=== PATIENT | female | born 1970 | race Two or more races ===

== ENCOUNTER 2024-11-25 07:43 | Outpatient (REF) | payer OTHER, SELFPAY ==
--- OUTSIDE RECORDS SUMMARY | 2024-11-25 07:47 | XMS_ITS | Clinical Summary ---
Author Organization [facility] Address [address] [place] [address] Care Team Providers Care Honing Machine Operator Tool Name Role Phone Anastacia Gonzalez RISK COMPLIANCE MANAGER Primary Care Provider [phone] Source Comments PLEASE NOTE, if this patient is a minor, it may be UNLAWFUL to discuss sensitive information that is contained in these records (such as FAMILY PLANNING, MENTAL HEALTH or SUBSTANCE ABUSE) with the minor patient's parent or other person without the patient's specific authorization.VERONICAIN Allergies Active Allergy Reactions Criticality Noted Date Comments Oxycodone Intolerance - Will N ot Trigger Allergy Alert Medium 02/07/2018 Medications arm brace (WRIST BRACE)Indicatio ns:Bilateral hand pain,Wrist tendonitis Bilateral wrist splints, right and left. M79.641, M79.642. Lifetime need. 2 Each 02/08/20 18 Active Additional Information Patient not taking.Reported on 10/09/2024 leg brace (ANKLE BRACE)Indicatio ns:Chronic pain of left ankle Ankle support brace, left. M77.8 Lifetime need. 1 Each 02/08/20 18 Active Additional Information Patient not taking.Reported on 10/09/2024 cyclobenzaprine (FLEXERIL) 10 mg tablet Take 1 Tablet by mouth 3 (three) times daily as needed for muscle spasms 30 Tablet 2 11/19/19 Active Additional Information Patient not taking.Reported on 10/09/2024 polyethylene glycol 3350 17 gram/dose powderIndicatio ns:Slow transit constipation Take 17 g by mouth once daily For constipation 510 g 2 02/07/20 Active Additional Information Patient not taking.Reported on 10/09/2024 calcium carbonate 600 mg calcium (1,500 mg) tabletIndicatio ns:Osteopenia, unspecified location Take 1 Tablet by mouth 2 (two) times daily 180 Tablet 3 02/07/20 22 Active Additional Information Patient not taking.Reported on 10/09/2024 methocarbamoL (ROBAXIN) 500 mg tabletIndicatio ns:DDD (degenerative disc disease), lumbar Take 1 Tablet by mouth 3 (three) times daily 30 Tablet 04/06/20 23 Active Additional Information Patient not taking.Reported on 10/09/2024 busPIRone (BUSPAR) 7.5 mg tabletIndicatio ns:Anxiety,Grie ving Take 1 Tablet by mouth 2 (two) times daily Please Discontinue 15 mg dosage 30 Tablet 04/30/20 23 Active Additional Information Patient not taking.Reported on 10/09/2024 gabapentin (NEURONTIN) 300 mg capsuleIndicati ons:Chronic left-sided low back pain with left-sided sciatica Take 1 Capsule by mouth 3 (three) times daily For pain 90 Capsule 2 08/17/19 24 Active Additional Information Patient not taking.Reported on 10/09/2024 lidocaine (LIDODERM) 5 % patchIndication s:Chronic left-sided low back pain with left-sided sciatica Place 1 Patch onto the skin once daily (every 24 hours) For low back pain 30 Patch 2 08/17/19 24 Active Additional Information Patient not taking.Reported on 10/09/2024 sucralfate (CARAFATE) 1 gram tabletIndicatio ns:LLQ pain Take 1 Tablet by mouth 4 (four) times daily 30 Tablet 09/15/19 24 Active Additional Information Patient not taking.Reported on 10/09/2024 traMADoL (ULTRAM) 50 mg tabletIndicatio ns:LLQ pain Take 1 Tablet by mouth 4 (four) times daily as needed for pain 15 Tablet 09/15/19 24 Active Additional Information Patient not taking.Reported on 10/09/2024 MUCUS DM 30-600 mg per 12 hr tabletIndicatio ns:Upper respiratory tract infection, unspecified type TAKE 1 TABLET BY MOUTH TWICE A DAY 30 Tablet 10/30/19 24 Active Additional Information Patient not taking.Reported on 10/09/2024 metFORMIN (GLUCOPHAGE) 500 mg tabletIndicatio ns:Prediabetes Take 1 Tablet by mouth 2 (two) times daily with a meal For prediabetes 180 Tablet 1 12/03/19 24 Active Additional Information Patient not taking.Reported on 10/09/2024 melatonin 5 mg tabIndications: Insomnia, unspecified type TAKE 1 TABLET BY MOUTH EVERYDAY AT BEDTIME 90 Tablet 1 04/08/20 24 Active meloxicam (MOBIC) 15 mg tabletIndicatio ns:Chronic pain of left heel Take 1 Tablet by mouth once daily For pain 30 Tablet 1 04/25/20 Active Additional Information Patient not taking.Reported on 10/09/2024 acetaminophen (TYLENOL 8 HOUR) 650 mg CR tabletIndicatio ns:Left foot pain Take 1 Tablet by mouth every 8 (eight) hours as needed for pain 60 Tablet 1 06/14/20 Active Additional Information Patient not taking.Reported on 10/09/2024 omeprazole (PRILOSEC) [address] capsuleIndicati ons:Gastroesoph ageal reflux disease without esophagitis Take 1 Capsule by mouth every morning before breakfast 90 Capsule 2 06/14/20 Active SUMAtriptan (IMITREX) 20 mg/actuation nasal sprayIndication s:Cluster headache, not intractable, unspecified chronicity pattern Place 1 [place] into the nostril(s) 1 (one) time as needed for migraine for up to 1 dose Can repeat dose after 2 hours. Max 2 doses in 24 hour period. 6 Each 09/12/19 Active Additional Information Patient not taking.Reported on 10/09/2024 fluticasone (FLONASE) 50 mcg/actuation nasal spray Place 1 [place] in both nostrils once daily 16 g 5 10/10/19 25 Active VITAMIN D3 25 mcg (1,000 unit) tablet TAKE 1 TABLET BY MOUTH EVERY DAY 90 Tablet 3 10/31/19 25 Active cholecalciferol (VITAMIN D-3) 25 mcg (1,000 unit) tablet Take 1 Tablet by mouth once daily 90 Tablet 3 11/20/19 24 2024 Discontinued Active Problems Problem Noted Date Diagnosed Date Carpal tunnel syndrome of right wrist 11/06/2023 Overview (11/06/2023): 10/23/2023: Amairani; EMG of upper extremities bilateral: result; mild median neuropathy at carte tunnel, on right hand. Class 1 obesity due to exces s calories without serious comorbidity with body mass index (BMI) of 31.0 to 31.9 in adult 09/15/2023 Osteopenia 02/15/2022 Overview (02/15/2022): 12/05/2021: Bone density: Osteopenia. OAB (overactive bladder) 02/15/2022 Slow transit constipation 02/15/2022 DDD (degenerative disc disease), lumbar 10/14/19 Overview (10/13/2021): 08/17/2021: Xray of lumbar: Mild DDD similar to Xray on 2020. Hx of right breast biopsy: 04/01/2021: Amairani: be nign 06/30/2021 Overview (08/31/2023): [facility]: 04/01/2021: Rt breast biopsy: Biopsy results have returned and are benign. Benign breast tissue with focal apocrine metaplasia evident. These findings are concordant with imaging. Recommend follow-up with mammography when due for annual screening. BI-RADS Category 2, benign 08/25/2023 - Mammogram - BI-RADS 1 - Negative. Recommendation: Routine screening mammogram Bilateral in 1 year Diverticulosis 02/13/2021 Overview (02/13/2021): 11/04/2020: CT of abd: amairani: IMPRESSION: No bowel obstruction, free air, free fluid or focal inflammatory changes. Colonic diverticulosis without evidence of acute diverticulitis. Fatty infiltration of liver. Fatty liver 02/13/2021 Overview (02/13/2021): 11/04/2020: CT of abd: denisay: IMPRESSION: No bowel obstruction, free air, free fluid or focal inflammatory changes. Colonic diverticulosis without evidence of acute diverticulitis. Fatty infiltration of liver. Hx of bacterial pneumonia 06/13/2020 Prediabetes 03/17/2019 Overview (03/17/2019): 02/27/19 - A1C = 5.9% Arthralgia of multiple joints 02/25/2018 Overview (03/17/2019): 02/19/18 - Xrays of b/l hands, wrists, L knee and L ankle NEGATIVE 02/26/19 - Seen by RHEUM: labs CBC, ESR, CRP, Cr, AST/ALT, RF, CCP; R knee and b/l hand xrays. F/U 2 weeks. 03/13/19 - Rheum F/U: Localized primary OA of knee, arthralgia of hand, no synovitis. Workup unrevealing for early inflammatory arthritis. Will continue to monitor. Tx: Tylenol 650 1-2 tabs Q8 hrs. F/U 3 mos. Iron deficiency anemia due to chronic blood loss 02/06/2017 Mixed hyperlipidemia 02/05/2017 Varicose veins of both lower extremities with pa in 01/09/2017 Gastroesophageal reflux disease without esophagi tis 01/08/2017 Overview (11/10/2018): 11/07/18 - CR UGI w/ Air: no masses, strictures or ulcers identified in upper GI tract. Hx of hysterectomy Overview (11/18/2021): ull hysterectomy with left oophorectomy Hx of cholecystectomy Resolved Problems Problem Noted Date Diagnosed Date Resolved Date Hx of tonsillectomy 01/09/2017 04/25/20 Hx of cholecystectomy 01/09/20172017 Fibroids 01/08/2017 02/13/2021 Hx of hysterectomy 01/08/2017 8 Overview (01/09/2017): Due to fibroids in 11/2016. Menorrhagia 12/10/2016 02/13/2021 Overview (12/10/2016): Joana Arnold, plan: Total abdo hysterectomy, ? BSO Encounters Date Type Department Care Team Description 10/09/2024 4:20 PM EDT Office Visit [address] [phone] Anjali Quiroz, VIC Bilateral carpal tunnel syndrome (Primary Dx); Seasonal allergic rhinitis, unspecified trigger 09/11/2024 3:20 PM EDT Office Visit [address] [phone] Wendy Pedraza PA Lopez, Iris Cluster headache, not intractable, unspecified chronicity pattern (Primary Dx) from Last 3 Months Immunizations Immunization Administration Dates Next Due Flu, Preservative Free 04/30/2023 Hep B,adult,adjuvanted (HEPLISAV) 04/29/2024,09/2023 INFLUENZA, SEASONAL, INJECTABLE 03/24/2013 JO-ANN COVID-19 VACCINE 09/20/2020 PFIZER COVID VACCINE, PURPLE CAP, 12+ 07/08/2021 TDAP 07/25/2019 ZOSTER VACCINE, RECOMBINANT (SHINGRIX) 0,07/25/2019 Family History Medical History Relation Name Comments Diabetes Brother Stroke Brother Heart Problems Father Diabetes Mother Stroke Mother Hypertension Sister Relation Name Status Comments Brother Alive Father Mother Alive Sister Alive Social History Tobacco Use Types Packs/Day Years Used Date Smoking Tobacco: Never Smokeless Tobacco: Never Tobacco Cessation:Counseling Given: Not Answered Alcohol Use Standard Drinks/Week Comments No 0 (1 standard drink = 0.6 oz pur e alcohol) Social Connections Answer Date Recorded Connectedness 0 03/07/2024 Financial Resource Strain Answer Date R ecorded Financial Resource Strain 0 2018 Stress Answer Date Recorded Stress 0 02/09/2019 Physical Activity Answer Date Recorded Physical Activity 0 02/09/2019 Food Insecurity Answer Date Recorded Food 0 03/13/2024 Transportation Needs Answer Date Record ed Transportation 0 02/09/2019 Housing Stability Answer Date Recorded Housing 0 02/09/2019 Safety and Environment Answer Date Navid rded Safety 0 02/09/2019 Utilities Answer Date Recorded Utilities 0 02/09/2019 Employment Answer Date Recorded Stress 0 03/07/2024 Comments No Sex and Gender Information Value Date Recorded Sex Assigned at Female 05/03/2017 5:00 PM PST Legal Sex Female 10:30 AM PST Gender Identity Female 05/03/2017 5:00 PM PST Sexual Orientation Straight 05/03/2017 5: 00 PM PST Last Filed Vital Signs Vital Sign Reading Time Taken Comments Blood Pressure 138/80 10/09/2024 4:09 PM EDT Pulse 93 10/09/2024 4:09 PM EDT Temperature 36.7 ??C (98 ??F) 10/09/2024 4:09 PM EDT Respiratory Rate 16 10/09/2024 4:09 PM EDT Oxygen Saturation 99% 10/09/2024 4:09 PM EDT Inhaled Oxygen Concentration - - Weight 80.3 kg (177 lb) 10/09/2024 4:09 PM EDT Height 162.6 cm (5' 4 ) 10/09/2024 4:09 PM EDT Body Mass Index 30.38 10/09/2024 4:09 PM EDT Plan of Treatment Upcoming Encounters Date Type Department Care Team (Late st Contact Info) Description 12/03/2024 9:20 AM EDT Office Visit [address] [phone] Anjali Quiroz, RISK COMPLIANCE MANAGER [address] [place] [address] Health Maintenance Due Date Last Done Comments Anxiety Screening 1968 CT Colonography 2013 FIT/gFOBT 2013 Fecal DNA 2013 Flexible Sigmoidoscopy 2013 Cervical Cancer Screening 10/14/2021 Pap + HPV 10/14/2021 10/14/2018 Pap Smear 10/14/2021 10/14/2018 HPV Screening 10/15/2023 10/14/2018 [id number] ( season) 2024 022, 09/20/2020 Annual Wellness (Adult): Indicated (All Coverage) 04/30/2024 04/30/2023, 02/03/2021, 06/25/2019, Additional history exists Alcohol and Drug Screen 06/18/2024 11/20/19 24, 08/17/2023, 04/30/2023, Additional history exists Depression Annual Screen 06/18/2024 04/25/2024 Diabetes Screening 11/26/2024 11/27/2023, 0 11/26/2023, 11/26/2023, Additional history exists Breast Cancer Screening (Mammogram) 06/30/2025 06/30/2024, 06/30/2024, 08/25/2023, Additional history exists Hypertension Screening (#1) 10/09/2025 Tobacco Screening 10/09/2025 10/09/2024 Lipid Screening 11/25/2026 11/26/2023, 03/0 09/2023, 08/20/2023, Additional history exists Colonoscopy 02/14/2028 02/13/2023, 03/07/2018 Colorectal Cancer Screening 02/14/2028 Imm-DTaP/Tdap/Td (2 - Td or Tdap) 07/25/2029 020 HIV Screening Completed 06/25/2019 Imm-Zoster, Recombinant Completed 09/26/2019, 07/25 Hepatitis C Screening Completed 03/16/2020 Bone Density Screening Completed 12/05/2021, 2021 Imm-Influenza Discontinued 04/30/2023, 03/24/2013 Imm-Hepatitis B Completed 04/29/2024, 11/20/2023 Cervical Ablation/Cold-Knife Conization Discontinued Cervical Cryotherapy Discontinued Colposcopy Discontinued Endometrial Biopsy Discontinued Excision/Leep Discontinued HPV Genotyping Discontinued Vaginal Pap Discontinued Vulvoscopy Discontinued Procedures Procedure Name Priority Date/Time Associated Diagnosis Comments HARDENING MACHINE OPERATOR REPORT 3:00 AM EDT REFERRAL TO ORTHOPEDICS Routine 10/28/19 25 3:00 AM EDT Bilateral carpal tunnel syndrome IMAGING SCANNED DOCUMENT 10/23/2024 3:00 AM EDT REFERRAL SCANNED DOCUMENT 10/22/2024 3:00 AM EDT REFERRAL TO PODIATRY Urgent 10/01/2024 3:00 AM EDT Chronic pain of left heel XR FOOT LEFT Routine 10/01/2024 3:00 AM EDT Left foot pain HISTORIC MAMMOGRAM 06/30/2024 3: 00 AM EST HGBA1C W/MPG Routine 11/26/2023 8:48 AM EDT Prediabetes LIPID PANEL Routine 11/26/2023 8:48 AM EDT Prediabetes HISTORIC COLONOSCOPY 02/13/2023 3:00 AM EDT HISTORIC DEXA SCAN 12/05/2021 3: 00 AM EDT HEPATITIS C DIAGNOSTIC (LLMM) Routine 03/16/2020 9:30 AM EDT Chronic fatigue ANTIBODY HIV-1&HIV-2 SINGLE RESULT Routine 06/25/2019 3:16 PM EST Routine general medical examination at a health care facility PAP SMEAR W/HPV, ABSTRACTED Routine 10/14/2018 11:14 AM EDT from Last 3 Months or Most Recently Relevant to Health Maintenance Results * HARDENING MACHINE OPERATOR REPORT (10/30/2024 3:00 AM EDT) 10/30/2024 3:00 AM EDT Anastacia Gonzalez RISK COMPLIANCE MANAGER SCAN PROCEDURES Final Result * REFERRAL TO ORTHOPEDICS (10/27/2024 3:00 AM EDT) 10/27/2024 3:00 AM EDT Anjali Quiroz RISK COMPLIANCE MANAGER REFERRAL Elsi l Result * IMAGING SCANNED DOCUMENT (10/23/2024 3:00 AM EDT) 10/23/2024 3:00 AM EDT Katty Bills RISK COMPLIANCE MANAGER SCAN IMAGING Final Result * REFERRAL SCANNED DOCUMENT (10/22/2024 3:00 AM EDT) 10/22/2024 3:00 AM EDT Katty Bills RISK COMPLIANCE MANAGER SCAN REFERRAL Final Result * XR FOOT LEFT [[id number]] (Rayus) (10/01/2024 3:00 AM EDT) 10/01/2024 3:00 AM EDT [facility] - 06/17/2024 11:07 AM EST IMPRESSION: No acute findings. ?? Huey Pacheco MD Signed by Huey Pacheco MD Read by: Dr. HUEY PACHECO M.D. Reviewed and Electronically Signed by: Dr. HUEY PACHECO M.D. [facility]IC [facility] - 06/17/2024 11:07 AM EST Original Report PROCEDURE: ??XR LEFT FOOT 3 or more views INDICATION: ??Left foot pain and swelling. TECHNIQUE: ??Three views of the left foot. COMPARISON: ??None. FINDINGS: ?? There is no displaced fracture. ??The alignment is anatomic. No soft tissue abnormality is seen. Procedure Note Default, [facility] Provider - 06/17/2024 Original Report PROCEDURE: XR LEFT FOOT 3 or more views INDICATION: Left foot pain and swelling. TECHNIQUE: Three views of the left foot. COMPARISON: None. FINDINGS: There is no displaced fracture. The alignment is anatomic. No soft tissue abnormality is seen. IMPRESSION: IMPRESSION: No acute findings. Huey Pacheco MD Signed by Huey Pacheco MD Read by: Dr. HUEY PACHECO M.D. Reviewed and Electronically Signed by: Dr. HUEY PACHECO M.D. Vineet Tineo [facility] IM[facility] XRAY Edited Result - Final [facility] DI[facility]NOSTIC IMAGING Corporate Office [address], [address] [place] [address], [place] [phone] * REFERRAL TO PODIATRY (10/01/2024 3:00 AM EDT) 10/01/2024 3:00 AM EDT us Anastacia Singhchanelle [facility] REFERRAL Edited Result - Final * HISTORIC MAMMOGRAM (06/30/2024 3:00 AM EST) 06/30/2024 3:00 AM EST Anastacia Singhserinasheri [facility] IMG MAMMO Final Result * (ABNORMAL) HGBA1C W/MPG (11/26/2023 8:48 AM EDT) HEMOGLOBIN A1C 6.2(H) <5.7 % of total Hgb [employer] Comment: For someone without known diabetes, a hemoglobin A1c value between 5.7% and 6.4% is consistent with prediabetes and should be confirmed with a follow-up test. For someone with known diabetes, a value <7% indicates that their diabetes is well controlled. A1c targets should be individualized based on duration of diabetes, age, comorbid conditions, and other considerations. This assay result is consistent with an increased risk of diabetes. Currently, no consensus exists regarding use of hemoglobin A1c for diagnosis of diabetes for children. MEAN PLASMA GLUCOSE 143 mg/dL (calc) [employer] Blood Blood / Unknown 11/26/2023 8 :48 AM EDT 11/26/2023 8:49 AM EDT Narrative [facility] - 11/27/2023 6:40 AM EDT FASTING:YES Anastacia Singhchanelle [facility] LAB - BLOOD DRAW Edited Result - Final [facility] [address] [place] [id number], [employer] [address] [place] [phone] * (ABNORMAL) LIPID PANEL (11/26/2023 8:48 AM EDT) CHOLESTEROL, TOTAL 208(H) <200 mg/dL [employer] HDL CHOLESTEROL 49(L) > OR = 50 mg/dL [employer] TRIGLYCERIDES 177(H) <150 mg/dL [employer] LDL-CHOLESTEROL 130(H) 99 mg/dL (calc) [employer] Comment: Reference range: <100 Desirable range <100 mg/dL for primary prevention; ?? <70 mg/dL for patients with CHD or diabetic patients with > or = 2 CHD risk factors. LDL-C is now calculated using the Terrell calculation, which is a validated novel method providing better accuracy than the Friedewald equation in the estimation of LDL-C. Zachary LAWRENCE et al. JADON. 2013;310(33): 4836-4452 (http://education.Novogy/faq/PCW253) CHOL/HDLC RATIO 4.2 <5.0 (calc) [employer] NON-HDL CHOLESTEROL 159(H) <130 mg/dL (calc) [employer] Comment: For patients with diabetes plus 1 major ASCVD risk factor, treating to a non-HDL-C goal of <100 mg/dL (LDL-C of <70 mg/dL) is considered a therapeutic option. Blood Blood / Unknown 11/26/2023 8 :48 AM EDT 11/26/2023 8:49 AM EDT Narrative [facility] - 11/27/2023 6:40 AM EDT FASTING:YES Anastacia HO LAB - BLOOD DRAW Final Result Performing Organization Address City/State/[facility] Co de Phone Number [facility] [address] [place] [id number], [employer] [address] [place] [phone] * HISTORIC COLONOSCOPY (02/13/2023 3:00 AM EDT) 02/13/2023 3:00 AM EDT Anastacia HO PROCEDURES Edited Result - Final * HISTORIC DEXA SCAN (12/05/2021 3:00 AM EDT) 12/05/2021 3:00 AM EDT Anastacia HO IMG DXA Edited Result - Final * HEPATITIS C DIAGNOSTIC (LLMM) (03/16/2020 9:30 AM EDT) Pathologist [facility] HEPATITIS C VIRUS DIAGNOSTIC NEGATIVE NEGATIVE [facility] 03/16/2020 9:30 AM EDT 03/16/2020 1:41 PM EDT [facility] - 03/16/2020 3:22 PM EDT [employer], [place] [address] Sandblasting Supervisor - Caro Mcdaniel MD PT ID [id number] ORD# [id number] [facility] - BLOOD DRAW Final Result Performing Organization Address City/[facility]/[place] [address], * HIV-1 & HIV-2 ANTIBODIES (06/25/2019 3:16 PM EST) [facility] HIV 1 AND 2 ANTIBODY SCREEN NONREACTIVE NONREACTIVE [facility] Comment: HIV testing performed at reference lab due to reagent backorder. Test performed at: [place] [address] Daryl Chamorro MD- Sandblasting Supervisor Blood specimen (specimen) Blood / Unknown 06/25/2019 3:16 PM EST 06/25/2019 3:20 PM EST [facility] - 06/30/2019 10:56 AM EST [employer], a member of [address] [address] Sandblasting Supervisor - Caro Mcdaniel MD PT ID [id number] ORD# [id number] [facility] - BLOOD DRAW Final Result Performing Organization Address City/[facility]/ZIP Co de Phone Number [address] [address], * PAP SMEAR W/HPV, ABSTRACTED (10/14/2018 11:14 AM EDT) PAP SMEAR INTERPRETATION NORMAL NORMAL [facility] HPV (HUMAN PAPILLOMA) NEGATIVE NEGATIVE [facility] HPV TYPE 16 NEGATIVE NEGATIVE [facility] HPV TYPE 18 NEGATIVE NEGATIVE [facility] Specimen from uterine cervix (specimen) Impressions [facility] - 10/14/2018 11:14 AM EDT ThinPrep Pap Negative for squamous intraepithelial lesion and malignancy Billie is present HPV Negative us Provider [facility] - PATHOLOGY AND CYTOLOGY AMB ULATORY Final Result [facility] [address] [place] [address], from Last 3 Months or Most Recently Relevant to Health Maintenance Insurance [employer] Member Subscriber Plan / Payer (Ef fective 2020-Present) Name:Clarissa Stallworth Relation to Subscriber:Self Name:Clarissa Stallworth Payer ID:[id number] Type:Indemnity Address: [facility] [address] [place] [address] Care Teams Honing Machine Operator Tool Relationship Specialty Start Date End Date Anastacia Gonzalez FNP [address] [place] [address] PCP - General Internal Medicine 06/25/19
--- NOTE | 2024-11-25 07:54 | EMG_ITS ---
FINDINGS: Bilateral median and ulnar motor and sensory studies were performed. Bilateral radial sensory studies and median and lateral antecubital brachial sensory studies were performed, and paraspinal muscles were tested with a needle. IMPRESSION: Mild right median neuropathy across carpal tunnel. Otherwise, no significant abnormality noted. MD SHANON Perez/FRAN / [id number]
== END 2024-11-25 07:44 | disposition home or self-care (01) ==
LOC: HO.NEURO 07:43
DX: R20.0 Anesthesia of skin (principal); R20.2 Paresthesia of skin
CPT/HCPCS: 95886; 95913

== ENCOUNTER 2024-12-02 13:54 | Outpatient (AMB) | payer OTHER, SELFPAY ==
--- NOTE | 2024-12-02 14:15 | A.OFFVIS_ITS ---
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 Patient reports she has daily pain, numbness and tingling. She says she wakes up in the morning with her hands cramped so she has to massage her hands to get her fingers to straighten out. She says after her EMG the next day she had an exacerbation in her pain. Expresses dropping items from her hand like plates, pots and pans. Her gripping, grasping and squeezing has become difficult for her due to her symptoms. She says she would like to try therapy before surgery. EMG/NCS done on 11/25/24 IMPRESSION: Mild right median neuropathy across carpal tunnel. Otherwise, no significant abnormality noted. 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 Patient reports she has daily pain, numbness and tingling. She says she wakes up in the morning with her hands cramped so she has to massage her hands to get her fingers to s traighten out. She says after her EMG the next day she had an exacerbation in her pain. Patient states that the numbness and tingling is present in both hands, and that 1 is not particularly worse than the other. Expresses dropping items from her hand like plates, pots and pans. Her gripping, grasping and squeezing has become difficult for her due to her symptoms. She says she would like to try therapy before surgery. EMG/NCS done on 11/25/24 IMPRESSION: Mild right median neuropathy across carpal tunnel. Otherwise, no significant abnormality noted. [facility] Social History (Updated 12/02/24 @ 14:20 by EMIL Noble) Alcohol intake: current Alcohol intake frequency: holidays/special occasions only Patient Tobacco Use Status: Never used Tobacco Current occupational status: employed Current occupation: right hand dominant Review of Systems Const All systems reviewed & are unremarkable except as noted in HPI and below Physical Exam Vital Signs: BMI result Body Mass Index 30.6 Extrem Other: Neuro: Decreased sensation of the tips of all digits of bilateral hands in the office today No thenar or intrinsic wasting. Good APB muscle firing and good finger cross. Vascular: Capillary refill brisk. ROM: Patient can make a fist and extend all their digits. Skin: No lacerations or abrasions noted. General: No ecchymosis. No erythema or evidence of infection. Assessment & Plan Assessment & Plan (1) Right carpal tunnel syndrome: Code(s): G56.01 - Carpal tunnel syndrome, right upper limb Category: Medical Plan 1. Right carpal tunnel syndrome Symptoms constant, daily, worse at night Patient is educated about this condition Patient is educated about the treatment options available At this time, patient states that she is being treated for a calcaneus fracture at a different practice, and would like to have treatment completed for this prior to any additional surgical intervention Patient is educated she should call our office for another appointment when she feels she is in a adequate spot to have surgery performed Patient understands this in his amenable to this plan Follow-up when she feels she is ready to discuss right carpal tunnel release, sooner with any acute concerns Coding Level of Care Code New Pt Level 3 (65805) Diagnoses Right carpal tunnel syndrome G56.01
[2024-12-02 14:17] VITALS: BMI 30.6
--- OUTSIDE RECORDS SUMMARY | 2024-12-02 15:58 | XMS_ITS | Clinical Summary ---
Author Organization [facility] Address [address] [place] [address] Care Team Providers Care Wire Twister Name Role Phone Anastacia Gonzalez SENIOR JAVASCRIPT ENGINEER Primary Care Provider [phone] Source Comments PLEASE NOTE, if this patient is a minor, it may be UNLAWFUL to discuss sensitive information that is contained in these records (such as FAMILY PLANNING, MENTAL HEALTH or SUBSTANCE ABUSE) with the minor patient's parent or other person without the patient's specific authorization.[facility] Allergies Active Allergy Reactions Criticality Noted Date Comments Oxycodone Intolerance - Will N ot Trigger Allergy Alert Medium 02/07/2018 Medications arm brace (WRIST BRACE)Indication s:Bilateral hand pain,Wrist tendonitis Bilateral wrist splints, right and left. M79.641, M79.642. Lifetime need. 2 Each 8 Active Additional Information Patient not taking.Reported on 10/09/2024 leg brace (ANKLE BRACE)Indication s:Chronic pain of left ankle Ankle support brace, left. M77.8 Lifetime need. 1 Each 8 Active Additional Information Patient not taking.Reported on 10/09/2024 cyclobenzaprine (FLEXERIL) 10 mg tablet Take 1 Tablet by mouth 3 (three) times daily as needed for muscle spasms 30 Tablet 2 2 Active Additional Information Patient not taking.Reported on 10/09/2024 polyethylene glycol 3350 17 gram/dose powderIndication s:Slow transit constipation Take 17 g by mouth once daily For constipation 510 g 2 2 Active Additional Information Patient not taking.Reported on 10/09/2024 calcium carbonate 600 mg calcium (1,500 mg) tabletIndication s:Osteopenia, unspecified location Take 1 Tablet by mouth 2 (two) times daily 180 Tablet 3 2 Active Additional Information Patient not taking.Reported on 10/09/2024 methocarbamoL (ROBAXIN) 500 mg tabletIndication s:DDD (degenerative disc disease), lumbar Take 1 Tablet by mouth 3 (three) times daily 30 Tablet 3 Active Additional Information Patient not taking.Reported on 10/09/2024 busPIRone (BUSPAR) 7.5 mg tabletIndication s:Anxiety,Grievi ng Take 1 Tablet by mouth 2 (two) times daily Please Discontinue 15 mg dosage 30 Tablet 3 Active Additional Information Patient not taking.Reported on 10/09/2024 gabapentin (NEURONTIN) 300 mg capsuleIndicatio ns:Chronic left-sided low back pain with left-sided sciatica Take 1 Capsule by mouth 3 (three) times daily For pain 90 Capsule 2 4 Active Additional Information Patient not taking.Reported on 10/09/2024 lidocaine (LIDODERM) 5 % patchIndications :Chronic left-sided low back pain with left-sided sciatica Place 1 Patch onto the skin once daily (every 24 hours) For low back pain 30 Patch 2 4 Active Additional Information Patient not taking.Reported on 10/09/2024 sucralfate (CARAFATE) 1 gram tabletIndication s:LLQ pain Take 1 Tablet by mouth 4 (four) times daily 30 Tablet 4 Active Additional Information Patient not taking.Reported on 10/09/2024 traMADoL (ULTRAM) 50 mg tabletIndication s:LLQ pain Take 1 Tablet by mouth 4 (four) times daily as needed for pain 15 Tablet 4 Active Additional Information Patient not taking.Reported on 10/09/2024 MUCUS DM 30-600 mg per 12 hr tabletIndication s:Upper respiratory tract infection, unspecified type TAKE 1 TABLET BY MOUTH TWICE A DAY 30 Tablet 4 Active Additional Information Patient not taking.Reported on 10/09/2024 metFORMIN (GLUCOPHAGE) 500 mg tabletIndication s:Prediabetes Take 1 Tablet by mouth 2 (two) times daily with a meal For prediabetes 180 Tablet 1 4 Active Additional Information Patient not taking.Reported on 10/09/2024 melatonin 5 mg tabIndications:I nsomnia, unspecified type TAKE 1 TABLET BY MOUTH EVERYDAY AT BEDTIME 90 Tablet 1 4 Active meloxicam (MOBIC) 15 mg tabletIndication s:Chronic pain of left heel Take 1 Tablet by mouth once daily For pain 30 Tablet 1 4 Active Additional Information Patient not taking.Reported on 10/09/2024 acetaminophen (TYLENOL 8 HOUR) 650 mg CR tabletIndication s:Left foot pain Take 1 Tablet by mouth every 8 (eight) hours as needed for pain 60 Tablet 1 4 Active Additional Information Patient not taking.Reported on 10/09/2024 omeprazole (PRILOSEC) [address] capsuleIndicatio ns:Gastroesophag eal reflux disease without esophagitis Take 1 Capsule by mouth every morning before breakfast 90 Capsule 2 4 Active SUMAtriptan (IMITREX) 20 mg/actuation nasal sprayIndications :Cluster headache, not intractable, unspecified chronicity pattern Place 1 [place] into the nostril(s) 1 (one) time as needed for migraine for up to 1 dose Can repeat dose after 2 hours. Max 2 doses in 24 hour period. 6 Each 5 Active Additional Information Patient not taking.Reported on 10/09/2024 fluticasone (FLONASE) 50 mcg/actuation nasal spray Place 1 [place] in both nostrils once daily 16 g 5 5 Active VITAMIN D3 25 mcg (1,000 unit) tablet TAKE 1 TABLET BY MOUTH EVERY DAY 90 Tablet 3 5 Active Active Problems Problem Noted Date Diagnosed Date Carpal tunnel syndrome of right wrist 11/06/2023 Overview (11/06/2023): 10/23/2023: Hannah; EMG of upper extremities bilateral: result; mild [...] 2020. Hx of right breast biopsy: 04/01/2021: [facility]: be nign 06/30/2021 Overview (08/31/2023): [facility]: 04/01/2021: [...] Resolved Date Hx of tonsillectomy 01/09/2017 04/25/20 18 Hx of cholecystectomy 01/09/20172017 Fibroids 01/08/2017 02/13/2021 Hx of hysterectomy 01/08/2017 8 Overview (01/09/2017): Due to fibroids in 11/2016. Menorrhagia 12/10/2016 02/13/2021 Overview (12/10/2016): Joana Arnold, plan: Total abdo hysterectomy, ? BSO Encounters Date Type Department Care Team Description 10/09/2024 4:20 PM EDT Office Visit [address] [id number] Anjali Quiroz FNP Bilateral carpal tunnel syndrome (Primary Dx); Seasonal allergic rhinitis, unspecified trigger 09/11/2024 3:20 PM EDT Office Visit [address] [phone] Wendy Pedraza PA Lopez, Iris Cluster headache, [...] Description 12/03/2024 9:20 AM EDT Office Visit [facility] [address] [place] [phone] Anjali Quiroz, [place] [address] [place] [address] Health Maintenance Due Date Last Done Comments Anxiety Screening 1968 CT Colonography 2013 FIT/gFOBT 2013 Fecal DNA 2013 Flexible Sigmoidoscopy 2013 Cervical Cancer Screening 10/14/2021 Pap + HPV 10/14/2021 10/14/2018 Pap Smear 10/14/2021 10/14/2018 HPV Screening 10/15/2023 10/14/2018 [id number] ( season) 2024 022, 09/20/2020 Annual Wellness (Adult): Indicated (All Coverage) 04/30/2024 04/30/2023, 02/03/2021, 06/25/2019, Additional history exists Alcohol and Drug Screen 06/18/2024 11/20/19, 08/17/2023, 04/30/2023, Additional history exists Depression Annual Screen 06/18/2024 04/25/2024 Diabetes Screening 11/26/2024 11/27/2023, 0 11/26/2023, 11/26/2023, Additional history exists Breast Cancer Screening (Mammogram) 06/30/2025 06/30/2024, 06/30/2024, 08/25/2023, Additional history exists Hypertension Screening (#1) 10/09/2025 Tobacco Screening 10/09/2025 10/09/2024 Lipid Screening 11/25/2026 11/26/2023, 0309/2023, 08/20/2023, Additional history exists Colonoscopy 02/14/2028 02/13/2023, [...] Procedure Name Priority Date/Time Associated Diagnosis Comments AUDITING CONTROL CLERK REPORT 3:00 AM EDT REFERRAL TO ORTHOPEDICS Routine 10/28/19 25 3:00 AM EDT Bilateral carpal tunnel syndrome IMAGING SCANNED DOCUMENT 10/23/2024 3:00 AM EDT REFERRAL SCANNED DOCUMENT 10/22/2024 3:00 AM EDT REFERRAL TO PODIATRY Urgent 10/01/2024 3:00 AM EDT Chronic pain of left heel XR FOOT LEFT Routine 10/01/2024 3:00 AM EDT Left foot pain HISTORIC MAMMOGRAM 06/30/2024 3 :00 AM EST HGBA1C W/MPG Routine 11/26/2023 8:48 [...] Recently Relevant to Health Maintenance Results * AUDITING CONTROL CLERK REPORT (10/30/2024 3:00 AM EDT) 10/30/2024 3:00 AM EDT Anastacia Gonzalez SENIOR JAVASCRIPT ENGINEER SCAN PROCEDURES Final Result * REFERRAL TO ORTHOPEDICS (10/27/2024 3:00 AM EDT) 10/27/2024 3:00 AM EDT Anjali Quiroz SENIOR JAVASCRIPT ENGINEER REFERRAL Elsi l Result * IMAGING SCANNED DOCUMENT (10/23/2024 3:00 AM EDT) 10/23/2024 3:00 AM EDT Katty Campositaka SENIOR JAVASCRIPT ENGINEER SCAN IMAGING Final Result * REFERRAL SCANNED DOCUMENT (10/22/2024 3:00 AM EDT) 10/22/2024 3:00 AM EDT Nice Nabitaka SENIOR JAVASCRIPT ENGINEER SCAN REFERRAL Final Result * XR FOOT LEFT [[id number]] (Rayus) (10/01/2024 3:00 AM EDT) 10/01/2024 3:00 AM EDT Impressions [facility] - 06/17/2024 11:07 AM EST IMPRESSION: No acute findings. ?? Huey Pacheco MD Signed by Huey Pacheco MD Read by: Dr. HUEY PACHECO M.D. Reviewed and Electronically Signed by: Dr. HUEY PACHECO M.D. Narrative [facility] - 06/17/2024 11:07 AM EST Original Report PROCEDURE: ??XR LEFT FOOT 3 or more views INDICATION: ??Left foot pain and swelling. TECHNIQUE: ??Three views of the left foot. COMPARISON: ??None. FINDINGS: ?? There is no displaced fracture. ??The alignment is anatomic. No soft tissue abnormality is seen. Procedure Note Default, [facility] Provider - 06/17/2024 Original Report PROCEDURE: XR [...] by: Dr. HUEY PACHECO M.D. Vineet Tineo MANAGER UTILITY IMG XRAY Edited Result - Final [facility] Corporate Office [address] [place], [address] [place] [address], [place] [phone] * REFERRAL TO PODIATRY (10/01/2024 3:00 AM EDT) 10/01/2024 3:00 AM EDT Anastacia Gonzalez SENIOR JAVASCRIPT ENGINEER REFERRAL Edited Result - Final * HISTORIC MAMMOGRAM (06/30/2024 3:00 AM EST) 06/30/2024 3:00 AM EST Anastacia ISABELP IMG MAMMO Final Result * (ABNORMAL) HGBA1C W/MPG (11/26/2023 8:48 AM EDT) HEMOGLOBIN A1C 6.2(H) <5.7 % of total Hgb [facility] Comment: For someone without known diabetes, a [...] children. MEAN PLASMA GLUCOSE 143 mg/dL (calc) [facility] Blood Blood / Unknown 11/26/2023 8 :48 AM EDT 11/26/2023 8:49 AM EDT Narrative [facility] - 11/27/2023 6:40 AM EDT FASTING:YES Anastacia Lisa [facility] - BLOOD DRAW Edited Result - Final [facility] [address] [place] [id number], [facility] [address] [place] [phone] * (ABNORMAL) LIPID PANEL (11/26/2023 8:48 AM EDT) CHOLESTEROL, TOTAL 208(H) <200 mg/dL [facility] HDL CHOLESTEROL 49(L) > OR = 50 mg/dL [facility] TRIGLYCERIDES 177(H) <150 mg/dL [facility] LDL-CHOLESTEROL 130(H) 99 mg/dL (calc) [facility] Comment: Reference range: <100 Desirable range <100 mg/dL for primary prevention; ?? <70 mg/dL for patients with CHD or diabetic patients with > or = 2 CHD risk factors. LDL-C is now calculated using the Zachary-Tidwell calculation, which is a validated novel method providing better accuracy than the Friedewald equation in the estimation of LDL-C. Zachary SS et al. JADON. 2013;310(19): 1895-3911 (http://education.Network Vision/faq/UQO769) CHOL/HDLC RATIO 4.2 <5.0 (calc) [facility] NON-HDL CHOLESTEROL 159(H) <130 mg/dL (calc) [facility] Comment: For patients with diabetes plus 1 major ASCVD risk factor, treating to a non-HDL-C goal of <100 mg/dL (LDL-C of <70 mg/dL) is considered a therapeutic option. Blood Blood / Unknown 11/26/2023 8 :48 AM EDT 11/26/2023 8:49 AM EDT Narrative [facility] - 11/27/2023 6:40 AM EDT FASTING:YES Anastacia ISABELP LAB - BLOOD DRAW Final Result [facility] [address] [place] [id number], [facility] [address] [place] [phone] * HISTORIC COLONOSCOPY (02/13/2023 3:00 AM EDT) 02/13/2023 3:00 AM EDT Anastacia ISABELP PROCEDURES Edited Result - Final * HISTORIC DEXA SCAN (12/05/2021 3:00 AM EDT) 12/05/2021 3:00 AM EDT Anastacia HO IMG DXA Edited Result - Final * HEPATITIS C DIAGNOSTIC (LLMM) (03/16/2020 9:30 AM EDT) Pathologist [facility] HEPATITIS C VIRUS DIAGNOSTIC NEGATIVE NEGATIVE [facility] 03/16/2020 9:30 AM EDT 03/16/2020 1:41 PM EDT Narrative [facility] - 03/16/2020 3:22 PM EDT [employer], a member of [address] [address] Footwear Sales Coordinator - Caro Mcdaniel MD PT ID [id number] ORD# [id number] Anastacia Singhchanelle SENIOR JAVASCRIPT ENGINEER LAB - BLOOD DRAW Final Result [address] [address], * HIV-1 & HIV-2 ANTIBODIES (06/25/2019 3:16 PM EST) Pathologist [facility] HIV 1 AND 2 ANTIBODY SCREEN NONREACTIVE NONREACTIVE [facility] Comment: HIV testing performed at reference lab due to reagent backorder. Test performed at: [place] [address] Daryl Chamorro MD- Footwear Sales Coordinator Blood specimen (specimen) Blood / Unknown 06/25/2019 3:16 PM EST 06/25/2019 3:20 PM EST Narrative [facility] - 06/30/2019 10:56 AM EST [employer], a member of [address] [address] Footwear Sales Coordinator - Caro Mcdaniel MD PT ID [id number] ORD# [id number] Anastaciaosvaldo Gonzalez SENIOR JAVASCRIPT ENGINEER LAB - BLOOD DRAW Final Result [address] [address], * PAP SMEAR W/HPV, ABSTRACTED (10/14/2018 11:14 AM EDT) Pathologist [facility] PAP SMEAR INTERPRETATION NORMAL NORMAL [facility] HPV (HUMAN PAPILLOMA) NEGATIVE NEGATIVE [facility] HPV TYPE 16 NEGATIVE NEGATIVE [facility] HPV TYPE 18 NEGATIVE NEGATIVE [facility] Specimen from uterine cervix (specimen) Impressions [facility] - 10/14/2018 11:14 AM EDT ThinPrep Pap Negative for squamous intraepithelial lesion and malignancy Billie is present HPV Negative us Provider [facility] - PATHOLOGY AND CYTOLOGY AMB ULATORY Final Result [facility] [address] [place] [address], from Last 3 Months or Most Recently Relevant to Health Maintenance Insurance [id number] Member Subscriber Plan / Payer (Ef fective 2020-Present) Name:Clarissa Stallworth Relation to Subscriber:Self Name:Clarissa Stallowrth Payer ID:[id number] Type:Indemnity Address: [facility] [address] [place] [address] Care Teams Wire Twister Relationship Specialty Start Date End Date Anastacia Gonzalez FNP [address] [place] [address] PCP - General Internal Medicine 06/25/19
== END 2024-12-02 15:31 | disposition home or self-care (01) ==
LOC: HO.HOS 13:55
DX: G56.01 Carpal tunnel syndrome, right upper limb (principal)
CPT/HCPCS: 99203

== ENCOUNTER → 2024-12-02 13:54 | Outpatient (BNVA) | payer OTHER, SELFPAY | DX: G56.01 Carpal tunnel syndrome, right upper limb (principal); R20.2 Paresthesia of skin | CPT/HCPCS: 99202 ==

== ENCOUNTER 2025-05-12 13:18 | Outpatient (AMB) | payer OTHER, SELFPAY ==
--- NOTE | 2025-05-12 13:21 | A.OFFVIS_ITS ---
Vital Signs 3 05/12/25 13:25 Height 5 ft Weight 178 lb BMI 34.8 BP 124/74 Blood Pressure Location Lt brachial Position Sitting Pulse 90 Pulse Source Pulse Oximeter Pulse Oximetry (%) 100 Oxygen Delivery Method Room Air Intake Visit Reasons: LUMBAR RADICULOPATHY Intake Note: Pain today 02/25 Out Of School Hours Care Worker Required: No Accompanied by: Spouse Allergies peanut Allergy (Intermediate, Verified 05/12/25 13:25) Anaphylaxis acetaminophen (From Percocet) Adverse Reaction (Unknown, Verified 05/12/25 13:25) blood pressure drops oxycodone (From Percocet) Adverse Reaction (Unknown, Verified 05/12/25 13:25) blood pressure drops HPI Comments Details: The patient is a 54 year old individual presenting for evaluation of low back pain with left sided lumbar radiculopathy. The patient reports diffuse pain involving the back and left foot, which is exacerbated at night and daily activities, leading to significant sleep disturbance, with the patient sleeping only about two hours per night. Her left foot pain is localized to left plantar aspect of the heel. The patient is currently undergoing physical therapy at [facility] for the back and has completed five visits with two remaining. In addition to back pain, the patient has an orthopedic diagnosis of left posterior and plantar fascial fibromatosis, plantar fasciitis, and equinus contracture of the ankle. This condition is being managed by an Orthopedist, and surgical intervention may be required. The patient also reports paresthesia in the left toes. She is wearing Cam boot and utilizes left knee scooter for transfers and mobility. Past medical history is notable for prediabetes and carpal tunnel syndrome, which is managed by a hand specialist. 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 Pain is exacerbated by prolonged standing, walking, heavy lifting and sitting. A lumbar spine MRI performed in February revealed mild degenerative changes. At L4-L5, there is a small annular tear with a disc bulge and bilateral facet arthritis, without significant stenosis. At L5-S1, a bulging disc impinges the right descending and exiting nerve roots, and there is moderate right neuroforaminal narrowing. - Location: The patient reports pain in the low back, which radiates to the left leg, and also has pain in the left foot. - Quality: Associated with pins and needles and numbness in the toes, aching, sharp and stabbing pain in the lower back. - Timing: Pain is worse at night and during the day with activities and movements. - Exacerbating Factors: Pain is worsened by standing up, leaning backward, forward flexion, walking, standing, and prolonged sitting. - Associated Symptoms: The pain significantly interferes with sleep, limiting it to approximately two hours per night. - Affect: Pain significantly impacts sleep, with the patient reporting only sleeping about 2 hours per night. - Analgesia: The patient is currently undergoing physical therapy for back pain. - Activities of Daily Living: The patient cannot stand or sit for long periods and is currently out of work due to pain. - Aberrant Drug Related Behaviors: None discussed. [facility] Medical History (Updated 05/12/25 @ 14:37 by VIC Gilliam) Chronic low back pain Left foot pain Plantar fascial fibromatosis of left foot Hyperlipidemia Arthralgia of multiple joints Fatty liver Diverticulosis Gastritis Iron deficiency anemia Prediabetes Rectal polyp Constipation Spider varicose vein Foot pain Surgical History H/O: hysterectomy Social History Alcohol intake: current Alcohol intake frequency: holidays/special occasions only Patient Tobacco Use Status: Never used Tobacco Current occupational status: employed Current occupation: right hand dominant Review of Systems Const Details: - Constitutional: Reports poor sleep quality, sleeping only about 2 hours nightly. - Musculoskeletal: Reports low back pain radiating to the left leg and pain in the left foot. - Neurological: Reports paresthesia (pins and needles) and numbness in the toes; denies bladder or bowel dysfunction or saddle anesthesia. All systems reviewed & are unremarkable except as noted in HPI and below Physical Exam Vital Signs: Last Vital Signs Pulse 90 05/12/25 13:25 BP 124/74 05/12/25 13:25 Pulse Ox 100 05/12/25 13:25 Oxygen Delivery Method Room Air 05/12/25 13:25 BMI result Body Mass Index 34.8 General: Appears afebrile. Alert and oriented. Mood and affect appropriate. Follows and participates in conversation appropriately. Respiratory effort is unlabored. No cough. Able to transition from sit to stand unassisted. Ambulates with right normal heel strike and toe off. Left lower leg and foot in CAM boot, uses left knee scooter. General: Yes no CVA tenderness Back/Spine/Pelvis Other: Limited lumbar ROM due to pain. Demonstrates 5/5 strength of quadriceps bilaterally as well as flexion/dorsiflexion of bilateral feet against resistance. 2+ pedal pulses bilaterally. Straight leg rise with dorsiflexion negative bilaterally. +2 patellar and +1 right, not tested left, achilles reflexes bilaterally. Facet loading test positive bilaterally. Dave?s, Pelvic compression and Stinchfield tests are positive bilaterally, left>right. Mild right groin pain with I/E hip rotations. Valsalva maneuver negative. Back: no CVA tenderness Cervical Spine: cervical ROM normal, cervical muscular tenderness, No Cervical spine scars present and No Cervical spine tenderness Thoracic/Lumbar Spine: thoracic and lumbar spine normal to inspection, No Thoracic/lumbar spine scar(s), Lasegue's sign negative, straight leg raise negative bilaterally, pain with thoraco-lumbar ROM, paraspinal muscle tenderness, thoraco-lumbar ROM limited, No thoracic spinal tenderness and lumbar spinal tenderness (L4-S1) Sacroiliac joints: bilaterally (+Dave's on the left) tender to palpation Extrem General: Yes capillary refill normal, Yes no clubbing, cyanosis or edema and Yes no calf tenderness Left lower extremity: foot Details: tenderness Location: of the plantar foot Results Reviewed Results Reviewed: Assessment & Plan Assessment & Plan (1) Lumbar radiculopathy: Code(s): M54.16 - Radiculopathy, lumbar region Category: Medical (2) Lumbar degenerative disc disease: Code(s): M51.369 - Other intervertebral disc degeneration, lumbar region without mention of lumbar back pain or lower extremity pain Category: Medical (3) Chronic low back pain: Code(s): M54.50 - Low back pain, unspecified; G89.29 - Other chronic pain Category: Medical (4) Plantar fascial fibromatosis of left foot: Code(s): M72.2 - Plantar fascial fibromatosis Category: Medical (5) Left foot pain: Code(s): M79.672 - Pain in left foot Category: Medical (6) Sacroiliac joint pain: Code(s): M53.3 - Sacrococcygeal disorders, not elsewhere classified Category: Medical (7) Lumbosacral spondylosis: Code(s): M47.817 - Spondylosis without myelopathy or radiculopathy, lumbosacral region Category: Medical Plan The patient's left-sided symptoms do not correlate with the MRI findings, which show right-sided nerve impingement at L4-L5 and no significant left neuroforaminal or central canal spine narrowing. The low back pain is attributed to lumbar arthritis and sacroiliac joint pain, while the left foot pain is considered to be from the orthopedic diagnoses of plantar fasciitis and fibromatosis, not radiculopathy. For the low back pain, the plan is to proceed with diagnostic bilateral L3, L4, and L5 medial branch blocks (MBBs) with local and fluoroscopy. If these injections provide at least six hours of significant pain relief, the patient will be a candidate for a subsequent radiofrequency ablation (RFA) procedure or therapeutic injections. Expectations, risks and benefits were reviewed. Patient is aware she will be contacted to schedule this procedure. Peripheral nerve stimulation was discussed as a potential treatment for left foot or back pain, but it is not covered by the patient's current insurance ([email or web address]). This option can be revisited in June when the patient anticipates having new insurance coverage. The patient was advised to continue with the investment specialist for management of the left foot conditions, including potential surgery, and to follow up here after the injections. All questions and concerns have been answered and patient agreed with the treatment plan. Follow up after injections and sooner as needed. Patient was informed and verbally consented to the use of an ambient scribe for clinic note documentation during this visit. Coding Level of Care Code New Pt Level 4 (77838) Diagnoses Lumbar radiculopathy M54.16 Lumbar degenerative disc disease M51.369 Chronic low back pain M54.50; G89.29 Plantar fascial fibromatosis of left foot M72.2 Left foot pain M79.672 Sacroiliac joint pain M53.3 Lumbosacral spondylosis M47.817
[2025-05-12 13:25] VITALS: BP 124/74; PULSE 90; O2SAT 100; BMI 34.8
--- OUTSIDE RECORDS SUMMARY | 2025-05-12 17:08 | XMS_ITS | Encounter Summary ---
Author Organization [facility] Address [address] [place] [address] Care Team Providers Care Principal Cyber Engineer Name Role Phone Katty Bills VIC Primary Care Provider [phone] Encounter Details Date Type Department Care Team (Latest Contact Info) Description 02/11/2025 Lab Requisition [facility] - Main Lab [address] [place] [id number] Julien Arnold MD [address] [phone] Encounter for gynecological examination (general) (routine) without abnormal findings Social History Tobacco Use Types Packs/Day Years Used Date Smoking Tobacco: Never Smokeless Tobacco: Never Comments No Sex and Gender Information Value Date Recorded Sex Assigned at Female 06/27/2024 5:18 PM EST Legal Sex Female 1:57 PM EST Gender Identity Female 06/27/2024 5:18 PM EST Sexual Orientation Straight 06/27/2024 5: 18 PM EST documented as of this encounter Plan of Treatment Not on file documented as of this encounter Procedures Procedure Name Priority Date/Time Associated Diagnosis Comments PAP SMEAR Routine 02/11/2025 12:00 AM EDT Encounter for gynecological examination (general) (routine) without abnormal findings documented in this encounter Results * Pap smear (02/11/2025 12:00 AM EDT) Interpretation Negative for intraepithelial lesion or malignancy 02/20/2025 4:00 PM EDT [facility] General Categorization Negative 02/20/2025 4:00 PM EDT [facility] Specimen Adequacy Satisfactory for evaluation 02/20/2025 4:00 PM EDT [facility] Pap Methodology Liquid Based Pap Test 02/20/2025 4:00 PM EDT [facility] Disclaimer The Pap test is a screening test which carries an inherent false negative rate. These test results should be correlated with the patient's clinical findings and history. This Pap test was processed using an automated screening system. Technical cytopathology services provided by [facility], at [address] [place] [address] (CLIA # [id number]/Dayna Sheppard MD, Box Cutter.) 02/20/2025 4:00 PM EDT [facility] Console Pap Interpretation Reported 02/20/2025 4:00 PM [facility] Brushing/Spatula Vaginal structure / Unknown 02/11/2025 02/11/2025 2:00 PM EDT us Julien Arnold MD LAB CYTOLOGY ORDERABLES Final Result [facility] [address] [place] [address], documented in this encounter Visit Diagnoses Diagnosis Encounter for gynecological examination (general) (routine) without abnormal findings documented in this encounter Care Teams Principal Cyber Engineer Relationship Specialty Start Date End Date Katty Bills FNP [address] [place] [phone] PCP - General Nurse Practitioner 08/04/24 documented as of this encounter
--- OUTSIDE RECORDS SUMMARY | 2025-05-12 17:08 | XMS_ITS | Clinical Summary ---
Author Organization [facility] Address [address] [place] [address] Phone Care Team Providers Care Health And Safety Director Name Role Phone Katty Bills VIC Primary Care Provider [phone] Allergies Active Allergy Reactions Criticality Noted Date Comments Nut - Unspecified 02/04/2018 No reaction documented. Oxycodone-Acetaminophen 02/04/2018 No reaction documented. Peanut 02/04/2018 No reaction documented. Medications dicyclomine (BENTYL) 10 mg capsule TAKE 1 CAPSULE BY MOUTH 3 TIMES A DAY NEEDED FOR LOOSE STOOL FOR UP TO 180 DAYS. 04/23/2023 Active omeprazole (PriLOSEC) [address] capsule Take 1 capsule (20 mg total) by mouth 1 (one) time each day. 02/28/2023 Active baclofen (LIORESAL) 5 mg tablet Take 1 Tablet by mouth 3 times daily as needed (abd pain). 01/03/2023 Active acetaminophen (TYLENOL) 325 mg tablet 500 mg. 01/11/2018 Active CALCIUM CARBONATE ORAL 02/04/2018 Acti ve cholecalciferol (VITAMIN D-3) 25 mcg (1,000 unit) tablet 1,000 Units. 02/04/2018 Act juan daniel gabapentin (Neurontin) 100 mg capsule Take 1 capsule (100 mg total) by mouth 3 (three) times a day. 90 each 1 03/11/2025 Active Active Problems Problem Noted Date Diagnosed Date Lumbar spondylosis 10/13/2021 Overview (05/26/2024): 08/17/2021: Xray of lumbar: Mild DDD similar to Xray on 2020. Last Assessment & Plan: Patient has 2+ years history of low back pain that radiates to the left buttock, lateral hip and groin, down the anterior leg and cardenas to the top of the foot. She states it does seem to be getting worse with time, affects her ability to sit and stand for long periods of time. She was diagnosed with arthritis in the knees bilaterally, feels at times her knees are weak, had 2 falls in the last 2 years when her knee buckled, feels that has worsened her back pain. She denies saddle anesthesia, bowel bladder incontinence, although states she does feel the need to void frequently, at times after voiding she has a small leakage of urine when she gets up. She denies any right leg symptoms. She tried physical therapy 1 year ago, states they discontinued it because her pain seemed worse at the end of the session. She has tried cyclobenzaprine, currently is on Celebrex and feels it is helping her somewhat. Patient had lumbar spine MRI 01/27/2022 at [facility] that shows mild disc desiccation and loss of height at L4-5, L5-S1. At L5-S1 she has diffuse annular bulging with minimal right foraminal far lateral disc protrusion. On the lateral sagittal views, mild foraminal narrowing at L5-S1. I reviewed MRI images on the computer with the patient in detail. Ms. Stallworth has back and left leg pain, I did not see any significant findings on her lumbar MRI, however we will review the films with Dr. Warren to see if he recommends any surgical intervention. We talked about conservative treatment options like aquatic PT, acupuncture, cortisone injections. She does not wish to try any cortisone injections at this time, does want to try acupuncture. She states she is not at a point where she would consider any lumbar surgery right now. All questions answered. ADDENDUM 04/18/2022: I reviewed patient's lumbar MRI with Dr. Warren, he notes mild left L2-3 disc bulge, not causing any nerve root compression or neuroforaminal narrowing. Patient with mild right L5-S1 foraminal disc bulge, however patient without right-sided symptoms. Dr. Warren is not recommending any surgical intervention at this time. Fatty liver 02/13/2021 Overview (05/26/2024): 11/04/2020: CT of abd: amairani: IMPRESSION: No bowel obstruction, free air, free fluid or focal inflammatory changes. Colonic diverticulosis without evidence of acute diverticulitis. Fatty infiltration of liver. Prediabetes 12/03/2020 Pneumonia due to infectious organism 06/13/2020 Diverticulosis 10/28/2018 Gastritis 10/28/2018 Rectal polyp 03/08/2018 Arthralgia of multiple joints 02/25/2018 Overview (05/26/2024): 02/19/18 - Xrays of b/l hands, wrists, [...] 1-2 tabs Q8 hrs. F/U 3 mos. Constipation 02/04/2018 GERD (gastroesophageal reflux disease) 8 Spider varicose vein 01/09/2018 Hyperlipidemia 01/09/2018 Iron deficiency anemia 01/09/2018 Encounters Date Type Department Care Team Description 05/06/2025 1:45 PM EST Office Visit Orthopedic [address] [phone] Robert Mcdonough DPM Left foot pain (Primary Dx); Plantar fascial fibromatosis; Equinus contracture of ankle; Lumbosacral radiculopathy; Chronic pain of left heel 03/11/2025 8:30 AM EDT Office Visit Orthopedic [address] [phone] Robert Mcdonough DPM Left foot pain (Primary Dx); Plantar fascial fibromatosis; Equinus contracture of ankle; Lumbosacral radiculopathy 03/11/2025 Telephone Orthopedic Surgery - [place] [address] [facility] [address] [place] [phone] Robert Mcdonough DPM 03/09/2025 11:43 AM EDT - 03/09/2025 11:59 PM EDT Hospital Encounter Radiology Department [address] [phone] Radiculopathy, lumbar region; Spondylosis, unspecified Discharge Disposition: Home or Self Care 03/09/2025 Telephone Orthopedic Surgery - [place] [address] [facility] [address] [place] [phone] Marifer Donis 02/28/2025 7:46 AM EDT - 02/28/2025 11:59 PM EDT Hospital [facility]counter [facility] [address] [phone] Encounter for screening mammogram for malignant neoplasm of breast Discharge Disposition: Home or Self Care 02/11/2025 Lab Requisition [facility] [address] [place] [phone] Julien Arnold MD Encounter for gynecological examination (general) (routine) without abnormal findings 02/11/2025 Lab Requisition [facility] [address] [place] [phone] Julien Arnold MD Encounter for screening for infections with a predominantly sexual mode of transmission from Last 3 Months Immunizations Immunization Administration Dates Next Due Influenza trivalent, with pr eservative (Fluzone; Afluria) 6mo and older 03/24/2013 WOWash SARS-CoV-2 COVID-19, mRNA, LNP-S, preservative free 07/08/2021 Tdap Tetanus diptheria acell ular pertussis (Boostrix; Adacel) 7yo and older 07/25/2019 Zoster recombinant (Shingrix) 19yo and older 03/2020,07/25/2019 Surgical History Surgery Date Site/Laterality Comments UPPER GASTROINTESTINAL ENDOSCOPY 03/07/2018 PROCEDURE: UPPER GI ENDOSCOPY/EXAM; COMMENT: gastritis TONSILLECTOMY PROCEDURE: HISTORICAL TONSILLECTOMY HYSTERECTOMY PROCEDURE: HISTORICAL HYSTERECTOMY CHOLECYSTECTOMY PROCEDURE: HISTORICAL CHOLECYSTECTOMY STEREOTACTIC CORE BIOPSY 06/18/2020 - 06/17/2021 Right Medical History Medical History Date Comments Diverticulosis 10/28/2018 DX:Diverticulosi s Constipation 02/04/2018 DX:Constipation GERD (gastroesophageal reflu x disease) 02/04/2018 DX:GERD (gastroesophageal re flux disease) Hyperlipidemia 01/09/2018 DX:Hyperlipidemi a Iron deficiency anemia 01/09/2018 DX:Iron d eficiency anemia Rectal polyp 03/08/2018 DX:Rectal polyp Varicose veins 01/09/2018 DX:Varicose vein s Gastritis 10/28/2018 DX:Gastritis Prediabetes 12/03/2020 DX:Prediabetes Overactive bladder DX:Overactive bladder Fatty liver 02/13/2021 DX:Fatty liver; COMMENT: 11/04/2020: CT of abd: mercy: IMPRESSION: No bowel obstruction, free air, free fluid or focal inflammatory changes. Colonic diverticulosis without evidence of acute diverticulitis. Fatty infiltration of liver. Osteopenia DX:Osteopenia Social History Tobacco Use Types Packs/Day Years Used Date Smoking Tobacco: Never Smokeless Tobacco: Never Comments No Sex and Gender Information Value Date Recorded Sex Assigned at Female 06/27/2024 5:18 PM EST Legal Sex Female 1:57 PM EST Gender Identity Female 06/27/2024 5:18 PM EST Sexual Orientation Straight 06/27/2024 5: 18 PM EST Obstetrics History Para Term AB IAB SAB Ectopic Multiple Livin g Live Births 2 Last Filed Vital Signs Vital Sign Reading Time Taken Comments Blood Pressure 108/62 11/19/2023 10:19 AM EDT Si tting L Arm Pulse 92 11/19/2023 10:19 AM EDT Temperature - - Respiratory Rate - - Oxygen Saturation - - Inhaled Oxygen Concentration - - Weight 81.6 kg (180 lb) 03/09/2025 12:13 PM EDT Height 162.6 cm (5' 4 ) 02/28/2025 7:53 AM EDT Body Mass Index 30.9 02/28/2025 7:53 AM EDT Plan of Treatment Health Maintenance Due Date Last Done Comments Hepatitis A Vaccines (1 of 2 - Risk 2-dose series) 12/26/1987 Pneumococcal Vaccine: 50+ Years (1 of 1 - PCV) 2018 RSV Immunization Adult Patients (1 - Risk 50-74 years 1-dose series) 2018 Social Influencers of Health Screening 05/17/2022 Depression Screening 06/18/2024 COVID-19 Vaccine (3 - season) 2025 07/08/2021, 09/20/2020 Influenza Vaccine (#1) 2025 04/30/2023, 2012 Breast Cancer Screening 02/28/2027 02/29/20 25, 06/30/2024, 08/27/2023, Additional history exists Cervical Cancer Screening: Pap Smear 02/12/2028 02/11/2025 DTaP,Tdap,and Td Vaccines (2 - Td or Tdap) 07/25/2029 07/25/2019 Cholesterol Screening (Lipid Panel) 12/03/2029 12/03/2024, 11/26/2023, 11/26/2023, Additional history exists Colorectal Cancer Screening: Colonoscopy 02/13/2033 02/13/2023 HIV Screening Completed 06/25/2019 Zoster Vaccines Completed 09/26/2019, 07/25/2019 Hepatitis C Screening Completed 03/16/2020, 020 Hepatitis B Vaccines Completed 04/29/2024, 11/20/19 24 HIB Vaccines Aged Out No longer eligi ble based on patient's age to complete this topic HPV Vaccines Aged Out No longer eligi ble based on patient's age to complete this topic IPV Vaccines Aged Out No longer eligi ble based on patient's age to complete this topic MMR Vaccines Aged Out No longer eligi ble based on patient's age to complete this topic Meningococcal ACWY Vaccine Aged Out N o longer eligible based on patient's age to complete this topic Meningococcal B Vaccine Aged Out No l onger eligible based on patient's age to complete this topic RSV Immunization Patients Under 20 months Aged Out No longer eligible based on patient's age to complete this topic Varicella Vaccines Aged Out No longer eligible based on patient's age to complete this topic Procedures Procedure Name Priority Date/Time Associated Diagnosis Comments MR LUMBAR SPINE WO CONTRAST Routine 03/09/2025 12:47 PM EDT Radiculopathy, lumbar region Spondylosis, unspecified MG MAMMO DIGITAL SCREENING W MALACHI BILAT Routine 02/28/2025 7:57 AM EDT Encounter for screening mammogram for malignant neoplasm of breast CHLAMYDIA TRACHOMATIS AND NEISSERIA GONORRHOEAE PCR Routine 02/11/2025 1:13 PM EDT Encounter for screening for infections with a predominantly sexual mode of transmission PAP SMEAR Routine 02/11/2025 12:00 AM EDT Encounter for gynecological examination (general) (routine) without abnormal findings LIPID PANEL Routine 08/20/2023 HM COLONOSCOPY Routine 02/13/2023 HEPATITIS C SCREENING Routine 03/16/2020 from Last 3 Months or Most Recently Relevant to Health Maintenance Results * MR Lumbar Spine wo Contrast (03/09/2025 12:47 PM EDT) Anatomical Region Laterality Modality L-spine, Spine Magnetic Resonan ce 03/10/2025 4:31 PM EDT Impressions 03/10/2025 8:28 PM EDT Mild degenerative changes. Bulging disc at L5-S1 abuts the right descending and exiting nerve roots and appears to flatten the right descending nerve root in the lateral recess. -------- FINAL REPORT -------- Dictated By: Kathe Velasquez Dictated Date: 03/10/2025 16:31 ET Assigned Physician: Kathe Velasquez Reviewed and Electronically Signed By: Kathe Velasquez Signed Date: 03/10/2025 20:28 ET Workstation ID: [id number] Transcribed By: Self Edit Transcribed Date: 03/10/2025 16:53 ET Narrative 03/10/2025 8:28 PM EDT EXAM: Lumbar spine MRI HISTORY: Low back pain. Lumbar radiculopathy. COMPARISON: None CORRELATION: Lumbar spine radiography 01/22/2025 TECHNIQUE: Exam performed on a 1.5 Lenore high-field MRI scanner. Multiplanar imaging performed without contrast. FINDINGS: Conus medullaris terminates at T12 which is within normal limits. No abnormal cord signal detected. Vertebral body heights are maintained. Small T1 hyperintense lesions within T12, L2, and L5 likely represent hemangiomas. Minimal edematous degenerative endplate signal change at L2-3. L1-L2: No significant disc bulging or evidence of a disc protrusion or extrusion. No significant neural foraminal narrowing or spinal canal stenosis. L2-L3: Disc desiccation, mild loss of disc height, and diffuse disc bulging. No significant neural foraminal narrowing or spinal canal stenosis. L3-L4: Minimal foraminal disc bulging. No significant neural foraminal narrowing or spinal canal stenosis. L4-L5: Minimal disc desiccation and minimal disc bulging eccentric to the left with a tiny annular tear in the left posterolateral disc. Bilateral facet arthropathy. No significant neural foraminal narrowing or spinal canal stenosis. L5-S1: Minimal disc desiccation and disc bulging with a tiny annular tear in the right posterolateral aspect of the disc. Bulging disc abuts the right descending and exiting nerve roots and in conjunction with right facet arthropathy appears to flatten the right descending nerve root in the lateral recess. Moderate subarticular right neural foraminal narrowing. No significant left neural foraminal narrowing or spinal canal stenosis. Procedure Note Kathe Velasquez MD - 03/10/2025 EXAM: Lumbar spine MRI HISTORY: Low back pain. Lumbar radiculopathy. COMPARISON: None CORRELATION: Lumbar spine radiography 01/22/2025 TECHNIQUE: Exam performed on a 1.5 Lenore high-field MRI scanner.Multiplanar imaging performed without contrast. FINDINGS: Conus medullaris terminates at T12 which is within normal limits. Noabnormal cord signal detected. Vertebral body heights are maintained. Small T1 hyperintense lesionswithin T12, L2, and L5 likely represent hemangiomas. Minimal edematousdegenerative endplate signal change at L2-3. L1-L2: No significant disc bulging or evidence of a disc protrusion orextrusion. No significant neural foraminal narrowing or spinal canalstenosis. L2-L3: Disc desiccation, mild loss of disc height, and diffuse discbulging. No significant neural foraminal narrowing or spinal canalstenosis. L3-L4: Minimal foraminal disc bulging. No significant neural foraminalnarrowing or spinal canal stenosis. L4-L5: Minimal disc desiccation and minimal disc bulging eccentric to theleft with a tiny annular tear in the left posterolateral disc. Bilateralfacet arthropathy. No significant neural foraminal narrowing or spinalcanal stenosis. L5-S1: Minimal disc desiccation and disc bulging with a tiny annular tearin the right posterolateral aspect of the disc. Bulging disc abuts theright descending and exiting nerve roots and in conjunction with rightfacet arthropathy appears to flatten the right descending nerve root inthe lateral recess. Moderate subarticular right neural foraminalnarrowing. No significant left neural foraminal narrowing or spinal canalstenosis. IMPRESSION: Mild degenerative changes. Bulging disc at L5-S1 abuts the rightdescending and exiting nerve roots and appears to flatten the rightdescending nerve root in the lateral recess. -------- FINAL REPORT -------- Dictated By: Kathe Velasquez Dictated Date: 03/10/2025 16:31 ET Assigned Physician: Kathe Velasquez Reviewed and Electronically Signed By: Kathe Velasquez Signed Date: 03/10/2025 20:28 ET Workstation ID: [id number] Transcribed By: Self Edit Transcribed Date: 03/10/2025 16:53 ET Nolan HARVEY IMG MRI PROCEDURES Final Resul t * MG Mammo Digital Screening w Malachi bilat (02/28/2025 7:57 AM EDT) Anatomical Region Laterality Modality Breast Bilateral Mammography 03/02/2025 8:54 AM EDT Impressions 03/02/2025 9:24 AM EDT Benign. BI-RADS CATEGORY: 2 - BENIGN RECOMMENDATION: Screening bilateral mammogram is recommended in 1 year. Mammo Location: [facility], [address] [place] [address], [id number], . -------- FINAL REPORT -------- Dictated By: Azar Mancini Dictated Date: 03/02/2025 08:54 ET Assigned Physician: Azar Mancini Reviewed and Electronically Signed By: Azar Mancini Signed Date: 03/02/2025 09:24 ET Workstation ID: [id number] Transcribed By: Self Edit Transcribed Date: 03/02/2025 08:54 ET Narrative 03/02/2025 9:24 AM EDT CLINICAL: 54 years old, Female, routine annual exam. COMPARISON: 06/30/2024 and 08/25/2023. TECHNIQUE: Bilateral MLO and CC views were obtained digitally with 3-D mammogram (digital breast tomosynthesis). Computer-aided detection was utilized in evaluation of this exam (CAD). FINDINGS: Postbiopsy marker clip in the right breast. No suspicious mass or architectural distortion. No suspicious calcification. There has been no significant change from prior exam(s). BREAST DENSITY: B - There are scattered areas of fibroglandular density. Procedure Note Azar Mancini MD - 03/02/2025 CLINICAL: 54 years old, Female, routine annual exam. COMPARISON: 06/30/2024 and 08/25/2023. TECHNIQUE: Bilateral MLO and CC views were obtained digitally with 3-Dmammogram (digital breast tomosynthesis). Computer-aided detection wasutilized in evaluation of this exam (CAD). FINDINGS: Postbiopsy marker clip in the right breast. No suspicious mass or architectural distortion. No suspiciouscalcification. There has been no significant change from prior exam(s). BREAST DENSITY: B - There are scattered areas of fibroglandular density. IMPRESSION: Benign. BI-RADS CATEGORY: 2 - BENIGN RECOMMENDATION: Screening bilateral mammogram is recommended in 1 year. Mammo Location: [facility], [address] [place] [address], [id number], . -------- FINAL REPORT -------- Dictated By: Azar Mancini Dictated Date: 03/02/2025 08:54 ET Assigned Physician: Azar Mancini Reviewed and Electronically Signed By: Azar Mancini Signed Date: 03/02/2025 09:24 ET Workstation ID: [id number] Transcribed By: Self Edit Transcribed Date: 03/02/2025 08:54 ET Julien Arnold MD IMG BI PROCEDURES Final Result * Chlamydia trachomatis and Neisseria gonorrhoeae molecular study (02/11/2025 1:13 PM EDT) Neisseria gonorrhoeae PCR Negative Negative LAB MOLECULAR DIAGNOSTICS METHOD 02/11/2025 4:00 PM EDT [facility] Chlamydia trachomatis PCR Negative Negative LAB MOLECULAR DIAGNOSTICS METHOD 02/11/2025 4:00 PM EDT [facility] Swab Cervix uteri structure / Unknown Non-blood Collection / Unknown 02/11/2025 1:13 PM EDT 02/11/2025 1:14 PM EDT Julien Arnold MD LAB MICROBIOLOGY - GENERAL ORD ERABLES Final Result [facility] [address] [place] [address], [place] [phone] * Pap smear (02/11/2025 12:00 AM EDT) Pathologist [facility] Interpretation Negative for intraepithelial lesion or malignancy 02/20/2025 4:00 PM EDT [facility] General Categorization Negative 02/20/2025 4:00 PM EDT [facility] Specimen Adequacy Satisfactory for evaluation 02/20/2025 4:00 PM EDT [facility] Pap Methodology Liquid Based Pap Test 02/20/2025 4:00 PM EDT [facility] Disclaimer The Pap test is a screening test which carries an inherent false negative rate. These test results should be correlated with the patient's clinical findings and history. This Pap test was processed using an automated screening system. Technical cytopathology services provided by [facility], at [address] [place] [id number] (CLIA # [id number]/Dayna Sheppard MD, Benefits Sales Consultant.) 02/20/2025 4:00 PM EDT [facility] Console Pap Interpretation Reported 02/20/2025 4:00 PM EDT [facility] Brushing/Spatula Vaginal structure / Unknown 02/11/2025 02/11/2025 2:00 PM EDT Julien Arnold MD LAB CYTOLOGY ORDERABLES Final Result [facility] [address] [place] [address], [place] [phone] * Lipid panel (08/20/2023) [facility] LDL/HDL Ratio 0 Comment:no interpretation, a bstracted Triglycerides 0 mg/dL Comment:no interpretation, a bstracted Cholesterol 0 mg/dL Comment:no interpretation, a bstracted HDL 0 mg/dL Comment:no interpretation, a bstracted LDL Cholesterol 0 mg/dL Comment:no interpretation, a bstracted Blood Venous blood specimen / Unknown Historical [facility] LAB BLOOD ORDERABLES Elsi l Result * Colonoscopy (02/13/2023) [facility] Colonoscopy no interpretation , abstracted Anatomical Region Laterality Modality Other Historical Provider HEALTH MAINTENANCE Final Result * Hepatitis C Screening (03/16/2020) [facility] Hepatitis C Screening abstracted Historical [facility] HEALTH MAINTENANCE Final Result from Last 3 Months or Most Recently Relevant to Health Maintenance Insurance [facility] Care Teams Health And Safety Director Relationship Specialty Start Date End Date Katty Bills FNP [address] [place] [phone] PCP - General Nurse Practitioner 08/04/24
--- OUTSIDE RECORDS SUMMARY | 2025-05-12 17:08 | XMS_ITS | Encounter Summary ---
Author Organization [facility] Address [address] [place] [address] Care Team Providers Care Study Coordinator Name Role Phone Katty Bills VIC Primary Care Provider [phone] Encounter Details Date Type Department Care Team (Latest Contact Info) Description 02/11/2025 Lab Requisition [facility] - Main Lab [address] [place] [phone] Julien Arnold MD [address] [phone] Encounter for screening for infections with a predominantly sexual mode of transmission Social History Tobacco Use Types Packs/Day Years [...] Procedure Name Priority Date/Time Associated Diagnosis Comments CHLAMYDIA TRACHOMATIS AND NEISSERIA GONORRHOEAE PCR Routine 02/11/2025 1:13 PM EDT Encounter for screening for infections with a predominantly sexual mode of transmission documented in this encounter Results * Chlamydia trachomatis and Neisseria gonorrhoeae molecular study (02/11/2025 1:13 PM EDT) Neisseria gonorrhoeae PCR Negative Negative LAB MOLECULAR DIAGNOSTICS METHOD 02/11/2025 4:00 PM EDT [facility] Chlamydia trachomatis PCR Negative Negative LAB MOLECULAR DIAGNOSTICS METHOD 02/11/2025 4:00 PM EDT [facility] Swab Cervix uteri structure / Unknown Non-blood Collection / Unknown 02/11/2025 1:13 PM EDT 02/11/2025 1:14 PM EDT us Julien Arnold MD LAB MICROBIOLOGY - GENERAL ORD ERABLES Final Result [facility] [address] [place] [address], documented in this encounter Visit Diagnoses Diagnosis Encounter for screening for infections with a predominantly sexual mode of transmission documented in this encounter Care Teams Study Coordinator Relationship Specialty Start Date End Date Katty Bills FNP [facility] [place] [address] PCP - General Nurse Practitioner 08/04/24 documented as of this encounter
--- OUTSIDE RECORDS SUMMARY | 2025-05-12 17:08 | XMS_ITS | Clinical Summary ---
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 Not on mary e 10/05/2023 Are you concerned about learning? Not on file 10/05/2023 No 10/05/2023 No 10/05/2023 Digital Access Answer Date Recorded No 10/05/2023 No 10/05/2023 Reliable internet access at home? Not on file 10/05/2023 Device with a working camera? Not on file Comments Unknown Sex and Gender Information Value Date Recorded Sex Assigned at Not on file Legal Sex Female 9:49 AM EDT Gender Identity Not on file Sexual Orientation Not on file Plan of Treatment Health Maintenance Due Date Last Done Comments Adult Td,Tdap Booster 1968 LIPID PANEL 1968 DEPRESSION SCREENING 1980 SMOKING Hx and SMOKELESS TOB ACCO SCREENING 1981 HEPATITIS C SCREENING 1986 HIV ONE-TIME SCREENING (18-6 5 YEARS) 1986 PAP SMEAR 1989 MAMMOGRAM 2008 COLOGUARD 2013 COLONOSCOPY 2013 COLORECTAL CANCER SCREENING 2013 FIT TEST 2013 FOBT 2013 SIGMOIDOSCOPY 2013 VIRTUAL COLONOSCOPY 2013 PNEUMOCOCCAL VACCINES (50+ y ears) (1 of 1 - PCV) 2018 ZOSTER VACCINES (1 of 2) 2018 INFLUENZA VACCINE (#1) 2025 COVID-19 VACCINE ( - 2024-2 6 season) 2025 RSV VACCINE (1 - 1-dose 75+ series) 12/26/2043 HEPATITIS A VACCINES Aged Out No long er eligible based on patient's age to complete this topic HIB VACCINES Aged Out No longer eligi ble based on patient's age to complete this topic MENINGOCOCCAL VACCINES (ACWY) Aged Out No longer eligible based on patient's age to complete this topic MENINGOCOCCAL VACCINES (B) Aged Out N o longer eligible based on patient's age to complete this topic Medical Devices Not on file Insurance [employer] NON NSPG PCP [employer] NON NSPG PCP [employer] NON NSPG PCP S[employer] NON NSPG PCP S[employer] NON NSPG PCP [facility] [facility] Address: [address] [address] [place] [address] [employer] NON NSPG PCP SHARATH VINES [facility] Address: [address] [address] [place] [address] 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 It is not the complete legal health record.[facility]
== END 2025-05-12 14:01 | disposition home or self-care (01) ==
LOC: HO.PMC 13:19
PROVIDERS: PCP Nurse Practitioner Family; Visit Provider Nurse Practitioner Family
DX: M54.16 Radiculopathy, lumbar region (principal); M51.369 Other intervertebral disc degeneration, lumbar region without mention of lumbar back pain or lower extremity pain; M54.50 Low back pain, unspecified; G89.29 Other chronic pain; M72.2 Plantar fascial fibromatosis; M79.672 Pain in left foot; M53.3 Sacrococcygeal disorders, not elsewhere classified; M47.817 Spondylosis without myelopathy or radiculopathy, lumbosacral region
CPT/HCPCS: 99204

== ENCOUNTER → 2025-05-12 13:18 | Outpatient (BNVA) | payer OTHER, SELFPAY | PROVIDERS: PCP Nurse Practitioner Family; Visit Provider Nurse Practitioner Family | DX: M54.16 Radiculopathy, lumbar region (principal); M51.369 Other intervertebral disc degeneration, lumbar region without mention of lumbar back pain or lower extremity pain; M54.50 Low back pain, unspecified; M72.2 Plantar fascial fibromatosis; M79.672 Pain in left foot; M53.3 Sacrococcygeal disorders, not elsewhere classified; M47.817 Spondylosis without myelopathy or radiculopathy, lumbosacral region; G89.29 Other chronic pain | CPT/HCPCS: 99202 ==